=== PATIENT | male | born 1990 | race Caucasian/White ===

== ENCOUNTER 2017-08-09 18:30 | Emergency (ER) | payer MEDICAID, SELFPAY ==
[2017-08-09 18:31] VITALS: BP 148/79; PULSE 81; RESP 16; TEMP 36.2; O2SAT 97; BMI 38.7
--- NOTE | 2017-08-09 18:59 | CT_ITS ---
STUDY: CT SOFT TISSUE NECK WITH CONTRAST REASON FOR EXAM: Male, 27 years old. Sore throat. Prior tonsillectomy. RADIATION DOSAGE (If Supplied By Facility): CTDIvol = ( 22.75 ) mGy, DLP = ( 772.65 ) mGycm TECHNIQUE: The patient was scanned in a multi-detector CT scanner. High resolution transaxial imaging was performed following intravenous administration of 75ML ml of Isovue 300 contrast material. Sagittal and coronal images were reconstructed. Individualized dose optimization techniques were used for this CT. COMPARISON: None. FINDINGS: The lung apices are clear. There is no cervical lymphadenopathy. There is no fluid collection. The paranasal sinuses and mastoid air cells are clear. The visualized intracranial structures are within normal limits. CT/Soft Tissue Neck WITH Contrast IMPRESSION: Unremarkable contrast enhanced CT of the neck. Electronically Signed: Arnold Cueva, at 19:38 EST Tel , Service support ,
[2017-08-09 19:34] LABS: Absolute Neutrophil Count 7.4 X10^3/uL (2.0-7.7); Basophil# 0.02 X10^3/uL; Basophil% 0.2 % (0-1); Eosinophil# 0.18 X10^3/uL; Eosinophils% 1.7 % (0-5); Hematocrit 43.5 % (40-54); Hemoglobin 13.7 g/dl (13.0-16.5); Lymphocyte % 20.3 % (19-41); Mean Corp Hgb Conc 31.5 g/gl (32-36); Mean Corpuscular Volume 95.2 fL (80-94); Mean Platelet Vol. 9.2 fl (6.2-12.0); Monocyte# 0.99 X10^3/uL; Monocyte% 9.1 % (0-10); Neutrophil # 7.43 X10^3/uL (2.7-7.7); Neutrophil % 68.5 % (47-70); Platelet Count 180 K/mm3 (150-450); RBC Distribution Width CV 13.2 % (11.6-14.6); RBC Distribution Width SD 45.8 fl (35.1-43.9); Red Blood Count 4.57 M/mm3 (4.6-6.2); White Blood Count 10.8 K/mm3 (4.4-11.0)
[2017-08-09 19:46] LABS: Anion Gap 5 (5-15); BUN 14 mg/dL (7-18); BUN/Creat Ratio 16.1 RATIO (10-20); Calcium,Total 8.6 mg/dL (8.5-10.1); Chloride 107 mmol/L (98-107); Creatinine, Serum 0.87 mg/dL (0.70-1.30); EST Glomerular Filtration Rate 112 mL/min (>60); Est Glom Filt Rate - Afr Amer 136 mL/min (>60); Estimated Creatinine Clearance 166.34 ml/min; Glucose 90 mg/dL (70-110); Potassium 4.4 mmol/L (3.5-5.1); Sodium Level 142 mmol/L (136-145)
[2017-08-09 19:49] LABS: POSITIVE COUNT NO; POSITIVE DIFFERENTIAL NO; POSITIVE MORPHOLOGY NO
--- NOTE | 2017-08-09 19:59 | ED.VISSUMM ---
- ER Visit Summary Date of Service: 08/09/17 Chief Complaint: [Sore throat] History of Present Illness: The patient is a 27 M [presents to the emergency department with complaint of sore throat that started 3 days ago. Patient states that each day progressively has become more painful. Patient was seen in urgent care about 4 hours ago and they did a strep screen on him which was negative and the sent off a Tegretol level and told him it was not strep and send him home. Patient describes pain with swallowing. He denies any fevers. He denies any significant cough or body aches. Patient has had headache. Patient also describes vomiting for the last 4 months off and on anywhere from 1-5 times per day.] Physical Examination: HEENT-PERRLA, EOMI. Cranial nerves II through XII grossly intact. TMs clear. Mucous membranes moist. No adenopathy. She does have a small shallow ulceration to the soft palate left side. Uvula is in the midline without trismus. Cardiovascular-regular rate and rhythm without murmur or ectopy Lungs-clear to auscultation, chest wall stable without crepitus or subcu emphysema Abdomen-normoactive bowel sounds, soft, nontender, no rebound or rigidity, no peritoneal signs. Extremities-intact ?4, normal range of motion, normal pulses, atraumatic[] Test Results: [CBC with it was normal. Chemistries were normal. CT soft tissue neck was normal.] Emergency Department Course and Treatment: [Patient does not appear ill. I do not feel any further treatment is indicated at this time.] Treatment Plan: [Due to the painful swallowing issues patient advised to follow-up with primary care physician watermelon inspector for no doc and will also refer to GI on-call.] Disposition: [Discharged home in stable condition. Patient advised to return if inability to swallow, fever, increasing shortness of breath, or condition should worsen in any way. Impression: [Pharyngitis Odynophagia] This note was generated with [employer] dictation software. It may contain incorrect words, spelling, and punctuation that were not noted in review of the chart prior to signing ED Disposition - Plan for ED Patient: Chief Complaint: Sore Throat Referrals: Care Physician,No Primary [Primary Care Provider] -
--- NOTE | 2017-08-09 20:02 | ED.DCSUM_ITS ---
- ER Visit Summary Date of Service: 08/09/17 Chief Complaint: [Sore throat] History of Present Illness: The patient is a 27 M [presents to the emergency department with complaint of sore throat that started 3 days ago. Patient states that each day progressively has become more painful. Patient was seen in urgent care about 4 hours ago and they did a strep screen on him which was negative and the sent off a Tegretol level and told him it was not strep and send him home. Patient describes pain with swallowing. He denies any fevers. He denies any significant cough or body aches. Patient has had headache. Patient also describes vomiting for the last 4 months off and on anywhere from 1 -5 times per day.] Physical Examination: HEENT-PERRLA, EOMI. Cranial nerves II through XII grossly intact. TMs clear. Mucous membranes moist. No adenopathy. She does have a small shallow ulceration to the soft palate left side. Uvula is in the midline without trismus. Cardiovascular-regular rate and rhythm without murmur or ectopy Lungs-clear to auscultation, chest wall stable without crepitus or subcu emphysema Abdomen-normoactive bowel sounds, soft, nontender, no rebound or rigidity, no peritoneal signs. Extremities-intact ?4, normal range of motion, normal pulses, atraumatic[] Test Results: [CBC with it was normal. Chemistries were normal. CT soft tissue neck was normal.] Emergency Department Course and Treatment: [Patient does not appear ill. I do not feel any further treatment is indicated at this time.] Treatment Plan: [Due to the painful swallowing issues patient advised to follow- up with primary care physician talent acquisition assistant for no doc and will also refer to GI on- call.] Disposition: [Discharged home in stable condition. Patient advised to return if inability to swallow, fever, increasing shortness of breath, or condition should worsen in any way. Impression: [Pharyngitis Odynophagia] This note was generated with [employer] dictation software. It may contain incorrect words, spelling, and punctuation that were not noted in review of the chart prior to signing ED Disposition - Plan for ED Patient: Chief Complaint: Sore Throat Referrals: Care Physician,No Primary [Primary Care Provider] -
--- NOTE | 2017-08-09 20:02 | ED.DEP ---
ED Disposition - Plan for ED Patient: Chief Complaint: Sore Throat Instructions: ED Pharyngitis Viral Referrals: Care Physician,No Primary [Primary Care Provider] - Adam Blake MD [STAFF PHYSICIAN] - 3-5 Days Kevin Melendrez MD [STAFF PHYSICIAN] - 3-5 Days
[2017-08-09 20:07] VITALS: PULSE 82; RESP 16; O2SAT 98
== END 2017-08-09 20:07 | disposition home or self-care (01) ==
LOC: ED 19:03
PROVIDERS: Emergency Provider Emergency Medicine
DX: J02.9 Acute pharyngitis, unspecified (principal); R13.10 Dysphagia, unspecified; F41.9 Anxiety disorder, unspecified; F32.9 Major depressive disorder, single episode, unspecified; Z79.899 Other long term (current) drug therapy
CPT/HCPCS: 70491; 80048; 85025; 99283; Q9967; A4216

== ENCOUNTER 2017-09-04 08:27 | Emergency (ER) | payer MEDICAID, SELFPAY ==
[2017-09-04 08:28] VITALS: BP 158/103; PULSE 86; RESP 18; TEMP 36.4; BMI 41.2
--- NOTE | 2017-09-04 09:34 | ED.VISSUMM ---
- ER Visit Summary Date of Service: 09/04/17 Chief Complaint: Suicidal thoughts History of Present Illness: The patient is a 27 M who goes the counseling center. He reports these had suicidal thoughts my whole life. States that they have worsened over the past 2 months. He does not have a plan and would not act on any thoughts. States that he typically takes Tegretol at thousand milligrams nightly and Effexor 150 mg a day. He ran out of his Tegretol yesterday and was unable to take his dose last night. Physical Examination: Vitals: Stable. Afebrile. General: Well-nourished and well-developed. Head: Normocephalic atraumatic. Neck: Supple, no lymphadenopathy. No JVD. Nontender. Cardiovascular: Regular rate and rhythm. No murmurs. Respiratory: No respiratory distress. Clear to auscultation bilaterally. Abdominal: Soft, nontender, nondistended, normal bowel sounds. No guarding, rebound, or peritoneal signs. Back: Nontender. Extremities: Nontender, no edema. Skin: Normal color, no rash. Neurologic: Alert and oriented ?3. Cranial nerves II through XII are intact. Normal strength and sensation. Mental status exam: Patient appears their stated age. Good posture and grooming. Good eye contact. Normal rate, volume, and latency of speech. No suicidal or homicidal ideation. No auditory or visual hallucinations. Flow of thought is logical. Insight and judgment is fair. Test Results: Tegretol level is 5.5. Emergency Department Course and Treatment: The patient is resting comfortably and continues to deny plan. Treatment Plan: The patient was discussed with the counseling center. He has an appointment in 1 week at 1 PM. He was put on a cancellous to try to get an earlier appointment if available. He will be given a prescription for Tegretol. Return to the emergency department for any worsening symptoms. Disposition: To home in improved and stable condition. Impression: 1. Depression. This note was generated with [employer] dictation software. It may contain incorrect words, spelling, and punctuation that were not noted in review of the chart prior to signing ED Disposition - Plan for ED Patient: Chief Complaint: Mental Health Instructions: ED Depression Prescriptions: Carbamazepine [Tegretol] 1,000 mg PO QHS #150 tablet Referrals: Counseling,Center [GROUP OF PHYSICIANS] - 09/11/17 1:00 pm Additional Instructions: You were also put on a cancellation list for your counselor. You will be called if an earlier visit becomes available.
[2017-09-04 09:54] LABS: Carbamazepine (Tegretol) 5.5 ug/mL (4.0-12.0)
== END 2017-09-04 10:08 | disposition home or self-care (01) ==
PROVIDERS: Emergency Provider Emergency Medicine
DX: F32.9 Major depressive disorder, single episode, unspecified (principal); Z79.899 Other long term (current) drug therapy
CPT/HCPCS: 36415; 80156; 99283

== ENCOUNTER 2017-10-10 19:24 | Emergency (ER) | payer MEDICAID, SELFPAY ==
[2017-10-10 19:25] VITALS: BP 162/87; PULSE 94; RESP 18; TEMP 36.9; O2SAT 97; BMI 38.1
--- NOTE | 2017-10-10 19:39 | ED.VISSUMM ---
- ER Visit Summary Date of Service: 10/10/17 Chief Complaint: Prescription refill History of Present Illness: The patient is a 27 M who has a mood disorder. He is on Tegretol 1000 mg at night. States he takes 5 tablets at night. He moved from [place]. He has an appointment with new psychiatrist in a week. He has actually no other complaints. He denies history of hypertension. Physical Examination: Pressure is elevated at 162/87. Vital signs unremarkable. He is slightly anxious/nervous. HEENT is grossly unremarkable. Heart is regular. There is no respiratory distress. He is alert and oriented with a nonfocal neurologic exam. Test Results: None Emergency Department Course and Treatment: Refill prescription for Tegretol and referral to Dr. Radha Moraes since he does not have a physician in the area. Treatment Plan: Prescription refill and repeat blood pressure in 1-2 weeks Disposition: Discharge to home with appropriate follow-up with PCP and psychiatrist Impression: 1. Prescription refill 2. Hypertension in nonhypertensive patient, asymptomatic This note was generated with [employer] dictation software. It may contain incorrect words, spelling, and punctuation that were not noted in review of the chart prior to signing ED Disposition - Plan for ED Patient: Disposition: Home or Assisted Living Chief Complaint: Med Refill Instructions: Med Refill, ED Hypertension Poss Prescriptions: Carbamazepine [Tegretol] 1,000 mg PO QHS #150 tab Referrals: Care Physician,No Primary [Primary Care Provider] - Radha Moraes DO [NON-STAFF] - 1-2 Weeks Additional Instructions: You need to follow-up with Dr. moraes in 1-2 weeks to have your blood pressure re-checked since it was elevated today 162/87
--- NOTE | 2017-10-10 19:45 | ED.DCSUM_ITS ---
- ER Visit Summary Date of Service: 10/10/17 Chief Complaint: Prescription refill History of Present Illness: The patient is a 27 M who has a mood disorder. He is on Tegretol 1000 mg at night. States he takes 5 tablets at night. He moved from [place]. He has an appointment with new psychiatrist in a week. He has actually no other complaints. He denies history of hypertension. Physical Examination: Pressure is elevated at 162/87. Vital signs unremarkable. He is slightly anxious/nervous. HEENT is grossly unremarkable. Heart is regular. There is no respiratory distress. He is alert and oriented with a nonfocal neurologic exam. Test Results: None Emergency Department Course and Treatment: Refill prescription for Tegretol and referral to Dr. Radha Moraes since he does not have a physician in the area. Treatment Plan: Prescription refill and repeat blood pressure in 1-2 weeks Disposition: Discharge to home with appropriate follow-up with PCP and psychiatrist Impression: 1. Prescription refill 2. Hypertension in nonhypertensive patient, asymptomatic This note was generated with [employer] dictation software. It may contain incorrect words, spelling, and punctuation that were not noted in review of the chart prior to signing ED Disposition - Plan for ED Patient: Disposition: Home or Assisted Living Chief Complaint: Med Refill Instructions: Med Refill, ED Hypertension Poss Prescriptions: Carbamazepine [Tegretol] 1,000 mg PO QHS #150 tab Referrals: Care Physician,No Primary [Primary Care Provider] - Radha Moraes DO [NON-STAFF] - 1-2 Weeks Additional Instructions: You need to follow-up with Dr. moraes in 1-2 weeks to have your blood pressure re- checked since it was elevated today 162/87
[2017-10-10 20:00] VITALS: BP 161/87; PULSE 79; RESP 16; O2SAT 97
--- NOTE | 2017-10-17 11:55 | CASEMGMT ---
Social Work Note Upon review of chart it appears that the pt moved to [place] in the past few months and needs reestablished with a psychiatrist. Pt has come in to the ED 3x for reasons that revolve around medication refills. He follows with a counselor at the counseling center, but has not yet seen a psychiatrist. Placed call to the pt and left requesting a return phone call to confirm that the pt has a f/u appointment with psychiatry and has transportation. Placed call to the [facility] and confirmed that the pt has an appointment with a psychiatrist on 10/17 at 1500. Daylin Rodriguez, COLLEGE RECRUITER, SUPERVISOR CIGAR PROCESSING
--- NOTE | 2017-10-17 12:05 | CASEMGMT ---
Social Work Note Placed call to pt to confirm that he has transportation to his follow-up appointment this date. Left and requested a return phone call. Daylin Rodriguez, BOAT LOADER, EXHAUSTER ENGINEER
== END 2017-10-10 20:01 | disposition home or self-care (01) ==
LOC: ED 19:50
PROVIDERS: Emergency Provider Emergency Medicine
DX: F32.9 Major depressive disorder, single episode, unspecified (principal); R03.0 Elevated blood-pressure reading, without diagnosis of hypertension; Z76.0 Encounter for issue of repeat prescription; E66.9 Obesity, unspecified; Z79.899 Other long term (current) drug therapy
CPT/HCPCS: 99282

== ENCOUNTER 2017-12-23 22:39 | Emergency (ER) | payer MEDICAID, SELFPAY ==
[2017-12-23 22:39] VITALS: BP 132/99; PULSE 85; RESP 16; TEMP 36.7; O2SAT 97; BMI 41.1
--- NOTE | 2017-12-23 23:28 | ED.DCSUM_ITS ---
- ER Visit Summary Date of Service: 12/23/17 Chief Complaint: Medication side effects History of Present Illness: The patient is a 27 M presenting for evaluation secondary to potential medication side effect. Patient reports that he recently was started on propranolol for treatment of his anxiety. Patient reports that since he started taking it he has been feeling woozy tired, having headaches, and having sneezing fits. Patient reports that he has felt somewhat confused at work and as he works at [employer] stated that he accidentally threw away an entire tray of [employer]. He denies any unilateral numbness or weakness. Denies any fevers or head injury. Denies any visual changes. Review of systems otherwise negative. Physical Examination: Vital signs are within normal limits, patient is afebrile. General: Patient is well-nourished well-developed and in no acute distress. Head: Normocephalic, atraumatic Eyes: Pupils equal round and reactive bilaterally, extra occular motion intact bialterally ENT: Moist mucous membranes Neck: Supple, no lymphadenopathy, no JVD, no meningismus CVS: Heart regular rate and rhythm, no murmurs, rubs or gallops, radial pulses 2 + bilaterally Resp: Respirations nondistressed, lung sounds clear bilaterally Abdomen: Soft, nontender, nondistended, no palpable masses, normal bowel sounds Back: Nontender Extremities: Nontender, atraumatic, active full range of motion, no peripheral edema Skin: warm, no rashes, no petechia Neuro: Alert and oriented x 4, CN 2-12 intact, no lateralizing neurological defecits Psyc: Normal affect Emergency Department Course and Treatment: None indicated Treatment Plan: Patient presented secondary to what likely are medication side effects. He has normal physical exam, I do not believe that there is any indication for workup. Patient was recommended to decrease his propranolol dose by half, and follow-up with his primary care physician. Disposition: Discharge Impression: 1. Medication side effect This note was generated with [employer] dictation software. It may contain incorrect words, spelling, and punctuation that were not noted in review of the chart prior to signing ED Disposition - Plan for ED Patient: Chief Complaint: Allergic Reaction Instructions: ED Drug React Adverse Other Referrals: Care Physician,No Primary [Primary Care Provider] -
[2017-12-23 23:39] VITALS: BP 132/99; PULSE 85; RESP 16; O2SAT 97
== END 2017-12-23 23:39 | disposition home or self-care (01) ==
LOC: ED 23:10
PROVIDERS: Emergency Provider Emergency Medicine
DX: G44.40 Drug-induced headache, not elsewhere classified, not intractable (principal); R53.83 Other fatigue; R41.0 Disorientation, unspecified; T44.7X5A Adverse effect of beta-adrenoreceptor antagonists, initial encounter; E66.9 Obesity, unspecified; F41.9 Anxiety disorder, unspecified; F32.9 Major depressive disorder, single episode, unspecified; Z79.899 Other long term (current) drug therapy; Y92.89 Other specified places as the place of occurrence of the external cause
CPT/HCPCS: 99282

== ENCOUNTER 2018-01-27 23:00 | Emergency (ER) | payer MEDICAID, SELFPAY ==
[2018-01-27 23:01] VITALS: BP 164/87; PULSE 84; RESP 16; TEMP 36.3; O2SAT 97; BMI 38.1
--- NOTE | 2018-01-27 23:14 | ED.VISSUMM ---
- ER Visit Summary Date of Service: 01/27/18 Chief Complaint: Left leg pain History of Present Illness: The patient is a 27 M who presents with left leg pain. He has a history of sciatica. He complains of about 4 months of pain along his left lateral thigh and down behind his knee. He describes this as aching and burning. It is worse when he is been sitting. He denies any paresthesias weakness loss of function. He also complains of lower back pain. No urinary retention fecal incontinence numbness or tingling. No weakness. No fall injury or trauma. No abdominal pain. Physical Examination: Afebrile vitals are notable for blood pressure 164/87 otherwise normal Heart regular rate and rhythm No respiratory distress Abdomen soft Negative straight leg raise 5 out of 5 dorsiflexion, plantarflexion, extensor hallucis longus Easily palpable 2+ dorsalis pedis pulse with brisk capillary refill normal sensation to light touch no soft tissue swelling no reproducible tenderness Test Results: Not indicated Emergency Department Course and Treatment: I do believe the patient's presentation is consistent with a lumbar radiculopathy. We will try a course of prednisone. He was also given a referral for primary care physician. He was advised that if symptoms continue he may benefit from physical therapy. Treatment Plan: [] Disposition: Discharge Impression: Lumbar radiculopathy This note was generated with [employer] dictation software. It may contain incorrect words, spelling, and punctuation that were not noted in review of the chart prior to signing ED Disposition - Plan for ED Patient: Chief Complaint: Lower Extremity Injury Referrals: Care Physician,No Primary [Primary Care Provider] -
--- NOTE | 2018-01-27 23:16 | ED.DEP ---
ED Disposition - Plan for ED Patient: Chief Complaint: Lower Extremity Injury Instructions: ED Sciatica Prescriptions: Prednisone [Deltasone] 60 mg PO DAILY #15 tab Referrals: Care Physician,No Primary [Primary Care Provider] - Ky Arguello MD [STAFF PHYSICIAN] -
== END 2018-01-27 23:23 | disposition home or self-care (01) ==
LOC: ED 23:20
PROVIDERS: Emergency Provider Emergency Medicine
DX: M54.16 Radiculopathy, lumbar region (principal); F32.9 Major depressive disorder, single episode, unspecified; Z72.0 Tobacco use; Z79.899 Other long term (current) drug therapy
CPT/HCPCS: 99282

== ENCOUNTER 2018-02-10 21:46 | Emergency (ER) | payer MEDICAID, SELFPAY ==
[2018-02-10 21:46] VITALS: BP 137/87; PULSE 84; RESP 16; TEMP 36.3; O2SAT 98; BMI 38.1
--- NOTE | 2018-02-10 22:02 | ED.DCSUM_ITS ---
- ER Visit Summary Date of Service: 02/10/18 Chief Complaint: Back pain History of Present Illness: The patient is a 27 M with a history of chronic back pain with sciatica. He has had increasing pain over the past week. Patient was seen for the same on January 27. He was given a prednisone burst and patient states symptoms did improve while he had the medication. He is in the process of trying to establish a primary care physician. He had been taking ibuprofen but has been out of this for last several days as well. There is been no new injury to his back. Physical Examination: Vital signs unremarkable. Patient sitting upright in bed no acute distress. Heart is regular rate and rhythm. Lung sounds are clear. Abdomen is soft, obese, nontender. Back examination reveals mild tenderness in the left low lumbar paraspinals. Lower external examination reveals good strength and sensation on testing throughout. He has strong distal pulses. Test Results: [] Emergency Department Course and Treatment: Patient be treated with naproxen and a prednisone taper, first doses given here. He is given a pamphlet physician directory so he can establish primary care physician. Treatment Plan: [] Disposition: Discharge Impression: Sciatica This note was generated with [employer] dictation software. It may contain incorrect words, spelling, and punctuation that were not noted in review of the chart prior to signing ED Disposition - Plan for ED Patient: Chief Complaint: Back Referrals: Care Physician,No Primary [Primary Care Provider] -
--- NOTE | 2018-02-10 22:02 | ED.DEP ---
ED Disposition - Plan for ED Patient: Disposition: Home or Assisted Living Chief Complaint: Back Instructions: ED Sciatica Prescriptions: Naproxen [Naprosyn] 500 mg PO BID PRN PRN #20 tablet PRN Reason: Pain Prednisone 10 mg PO DAILY #63 tablet Additional Instructions: Physician directory provided with list of doctors in the area so you can establish a primary care physician.
[2018-02-10] MEDS: Naproxen 500 MG Tablet PO (22:07)
[2018-02-10] MEDS: predniSONE 20 MG Tablet 60 MG PO (22:07)
[2018-02-10 22:09] VITALS: BP 132/75; PULSE 89; RESP 16; O2SAT 98
== END 2018-02-10 22:11 | disposition home or self-care (01) ==
LOC: ED 22:05
PROVIDERS: Emergency Provider Emergency Medicine
DX: M54.42 Lumbago with sciatica, left side (principal); Z72.0 Tobacco use; Z79.899 Other long term (current) drug therapy
CPT/HCPCS: 99283

== ENCOUNTER 2018-05-22 05:58 | Emergency (ER) | payer MEDICAID, SELFPAY ==
[2018-05-22 05:59] VITALS: BP 137/103; PULSE 99; RESP 16; TEMP 36.6; O2SAT 95; BMI 43.8
[2018-05-22 06:02] VITALS: RESP 16
--- NOTE | 2018-05-22 06:26 | VDLE_ITS ---
Reason For Study: pain RIGHT LEFT GSV is normal. CFV is compressible, spontaneous, phasic, CFV is compressible, spontaneous, phasic, competent, and demonstrates normal competent and demonstrates normal augmentation. augmentation. FV is compressible, spontaneous, phasic, competent and demonstrates normal augmentation. POP V is compressible, spontaneous, phasic, competent and demonstrates normal augmentation. T/P Trunk is compressible. PTV is compressible. RT PerV is compressible. Procedure Exam performed portable in ED. The exam was diagnostic. A preliminary report was called and/or faxed to Dr. Black. <> Interpretation Summary Deep veins of the right lower extremity are patent and compressible segmentally. There is no evidence of right lower extremity deep vein thrombosis. Valvular competence appears intact within the proximal deep venous system on the right . The right greater saphenous vein appears patent and compressible segmentally. Ordering Physician: Darin Banks Performed By: Javier Guzmán RVT
--- NOTE | 2018-05-22 06:27 | ED.VISSUMM ---
- ER Visit Summary Date of Service: 05/22/18 Chief Complaint: Right thigh pain History of Present Illness: The patient is a 28 M who presents with right thigh pain. This is been present for about 1 week. Describes it as sharp or stabbing. It is only with movement. While at rest he has minimal if any pain. However it is severe with certain movements. He describes it as a muscle pain. He has no back pain. He has a history of sciatica but states this feels different and that it does not feel like nerve pain. He denies any recent travel or immobilization history of DVT or pulmonary embolism. He is otherwise generally medically healthy. Physical Examination: Blood pressure 137/103 vitals otherwise normal BMI 44 No apparent distress Heart regular rate and rhythm Lungs clear Patient has posterior right thigh tenderness no rash he has pain with flexion of the hip he has no pain with logroll he has no focal tenderness of the hip or knee. No edema. Easily palpable dorsalis pedis pulse with brisk capillary refill normal sensation Test Results: Venous duplex pending at the time of this dictation. Emergency Department Course and Treatment: I suspect this is musculoskeletal in nature related to hamstring strain. He does note that he has been working more recently. However DVT is also on my differential. We will obtain a venous duplex this morning to rule this out. Plan at the time of this dictation is to sign out this patient to the oncoming physician for follow-up on the venous duplex as they are not here yet at this time. This is normal patient can be discharged. I did give naproxen here and will write a prescription for the same. Treatment Plan: [] Disposition: Pending venous duplex Impression: Right thigh pain This note was generated with [employer] dictation software. It may contain incorrect words, spelling, and punctuation that were not noted in review of the chart prior to signing ED Disposition - Plan for ED Patient: Chief Complaint: Lower Extremity Injury Referrals: Care Physician,No Primary [Primary Care Provider] -
--- NOTE | 2018-05-22 06:30 | ED.DEP ---
ED Disposition - Plan for ED Patient: Chief Complaint: Lower Extremity Injury Instructions: ED Strain Muscle Ext Prescriptions: Naproxen [Naprosyn] 500 mg PO BID #20 tab Referrals: Care Physician,No Primary [Primary Care Provider] -
[2018-05-22] MEDS: Naproxen 500 MG Tablet PO (06:31)
--- NOTE | 2018-05-22 08:12 | NURSING ---
0800 [facility], VASCULAR LAB , IN ROOM
[2018-05-22 08:23] VITALS: BP 116/74; PULSE 61; RESP 15; O2SAT 97
== END 2018-05-22 08:23 | disposition home or self-care (01) ==
LOC: ED 06:18
PROVIDERS: Emergency Provider Emergency Medicine
DX: M79.651 Pain in right thigh (principal); Z72.0 Tobacco use; Z79.899 Other long term (current) drug therapy
CPT/HCPCS: 93971; 99282

== ENCOUNTER 2018-06-16 15:40 | Emergency (ER) | payer SELFPAY ==
[2018-06-16 15:40] VITALS: BMI 38.7
[2018-06-16 15:41] VITALS: BP 164/82; PULSE 85; RESP 16; TEMP 36.3; O2SAT 99; BMI 38.1
--- NOTE | 2018-06-16 15:52 | ED.VISSUMM ---
- ER Visit Summary Date of Service: 06/16/18 Chief Complaint: Right calf pain and leg pain History of Present Illness: The patient is a 28 M presents to the emergency department with 1 month of right calf and leg pain. Patient was seen here a month ago for the same. He states that the longer he would stand on his leg, he would get burning pain in the back of the leg into his calf. He presented here. At that time, he had an ultrasound which was negative. He states that he has changed jobs. He was actually off work for 2 weeks but he does like the pain has not improved. He denies any chest pain or trouble breathing. He does have a history of sciatica, but states normally, it is on his left side. He has had no problems with bowel or bladder. He denies any fevers or chills. Physical Examination: Afebrile, vitals unremarkable. Well-appearing male no acute distress. Head is normocephalic, atraumatic. Pupil's equal round reactive, extraocular muscles intact. Neck supple. Heart regular rate and rhythm. Lungs clear, chest nontender. Abdomen soft, nontender, nondistended. No pulsatile mass. Patient has paraspinal tenderness in the lumbar area, but no bony tenderness. Straight leg raise is re-creates the pain and burning in his right leg. 2+ symmetric lower extremity pulses. 2+ reflexes. No clonus. No weakness of dorsiflexion, plantar flexion, or extensor hallucis longus bilaterally.] Test Results: [] Emergency Department Course and Treatment: [The patient's symptoms do seem most consistent with a radiculopathy. His straight leg raise re-creates the pain down his leg. His pulses are normal. His ultrasound was normal. He has no edema. His compartments are soft. My suspicion is that this is likely coming from the lumbar spine. I am going to treat the patient with a steroid burst as he has had improvement with this in the past. He will be given anti-inflammatories and antispasmodics. He will be discharged home. Treatment Plan: [] Disposition: Discharge Impression: 1. Radiculopathy of the right lower extremity This note was generated with Live Life 360ation software. It may contain incorrect words, spelling, and punctuation that were not noted in review of the chart prior to signing ED Disposition - Plan for ED Patient: Chief Complaint: Lower Extremity Injury Instructions: ED Sciatica Prescriptions: Naproxen [Naprosyn] 500 mg PO BID PRN #20 tab predniSONE tablet 60 mg PO DAILY #15 tab Cyclobenzaprine [Flexeril] 10 mg PO TID PRN #20 tab PRN Reason: Muscle Spasm Referrals: Care Physician,No Primary [Primary Care Provider] -
--- NOTE | 2018-06-16 15:55 | ED.DCSUM_ITS ---
- ER Visit Summary Date of Service: 06/16/18 Chief Complaint: Right calf pain and leg pain History of Present Illness: The patient is a 28 M presents to the emergency department with 1 month of right calf and leg pain. Patient was seen here a month ago for the same. He states that the longer he would stand on his leg, he would get burning pain in the back of the leg into his calf. He presented here. At that time, he had an ultrasound which was negative. He states that he has changed jobs. He was actually off work for 2 weeks but he does like the pain has not improved. He denies any chest pain or trouble breathing. He does have a history of sciatica, but states normally, it is on his left side. He has had no problems with bowel or bladder. He denies any fevers or chills. Physical Examination: Afebrile, vitals unremarkable. Well-appearing male no acute distress. Head is normocephalic, atraumatic. Pupil's equal round reactive, extraocular muscles intact. Neck supple. Heart regular rate and rhythm. Lungs clear, chest nontender. Abdomen soft, nontender, nondistended. No pulsatile mass. Patient has paraspinal tenderness in the lumbar area, but no bony tenderness. Straight leg raise is re-creates the pain and burning in his right leg. 2+ symmetric lower extremity pulses. 2+ reflexes. No clonus. No weakness of dorsiflexion, plantar flexion, or extensor hallucis longus bilaterally.] Test Results: [] Emergency Department Course and Treatment: [The patient's symptoms do seem most consistent with a radiculopathy. His straight leg raise re-creates the pain down his leg. His pulses are normal. His ultrasound was normal. He has no edema. His compartments are soft. My suspicion is that this is likely coming from the lumbar spine. I am going to treat the patient with a steroid burst as he has had improvement with this in the past. He will be given anti- inflammatories and antispasmodics. He will be discharged home. Treatment Plan: [] Disposition: Discharge Impression: 1. Radiculopathy of the right lower extremity This note was generated with [employer] software. It may contain incorrect words, spelling, and punctuation that were not noted in review of the chart prior to signing ED Disposition - Plan for ED Patient: Chief Complaint: Lower Extremity Injury Instructions: ED Sciatica Prescriptions: Naproxen [Naprosyn] 500 mg PO BID PRN #20 tab predniSONE tablet 60 mg PO DAILY #15 tab Cyclobenzaprine [Flexeril] 10 mg PO TID PRN #20 tab PRN Reason: Muscle Spasm Referrals: Care Physician,No Primary [Primary Care Provider] -
== END 2018-06-16 16:19 | disposition home or self-care (01) ==
LOC: ED 16:07
PROVIDERS: Emergency Provider Emergency Medicine
DX: M54.16 Radiculopathy, lumbar region (principal); Z79.899 Other long term (current) drug therapy
CPT/HCPCS: 99282

== ENCOUNTER 2018-07-17 15:16 | Emergency (ER) | payer OTHER, MEDICAID, SELFPAY ==
[2018-07-17 15:17] VITALS: BP 151/100; PULSE 92; RESP 18; TEMP 36.6; O2SAT 97; BMI 19.0
--- NOTE | 2018-07-17 15:51 | ED.DCSUM_ITS ---
- ER Visit Summary Date of Service: 07/17/18 Chief Complaint: Right leg pain History of Present Illness: The patient is a 28 M who presents with right leg pain that has been gradually getting worse over the past couple months. Patient was seen here for this in the past and had a negative venous duplex. Patient states he was also put on steroids at one time which seemed to help with his pain. Patient admits to some paresthesias over the lateral aspect of the right leg. Patient states his pain is worse with ambulation and with standing. Patient describes the pain as aching, burning, and throbbing. Patient denies any trauma or injury. Physical Examination: Vital signs are stable. Patient is afebrile. Patient is in no acute distress. Heart was regular rate and rhythm. Lungs are clear and equal bilaterally. Abdomen is soft. Bowel sounds are normal. There is no tenderness. Musculoskeletal exam reveals tenderness over the right lumbar paraspinal muscles and over the sciatic notch. Range of motion was slightly limited in all motions of the lumbar spine secondary to pain. Range of motion of the right lower extremity was not limited. Strength is 5/5 bilaterally in the lower extremities. Deep tendon reflexes were 2+/4 bilaterally in the patella and Achilles reflexes. Sensation was diminished to light touch in the lateral aspect of the right leg but was otherwise intact to light touch. The remaining physical exam is within normal limits. Emergency Department Course and Treatment: I discussed with the patient that this is most likely a lumbar radiculopathy or sciatica. We will prescribe another burst of steroids for the patient since this has helped in the past. Patient was encouraged to follow-up with a primary care physician for further evaluation of his back. Patient understood and was agreeable with the plan. All questions were answered. Disposition: Discharged home Impression: Lumbar radiculopathy This note was generated with Protagen dictation software. It may contain incorrect words, spelling, and punctuation that were not noted in review of the chart prior to signing ED Disposition - Plan for ED Patient: Chief Complaint: Lower Extremity Injury Diagnosis: Lumbar radiculopathy, right Instructions: ED Sciatica Prescriptions: predniSONE tablet 60 mg PO DAILY #15 tab Referrals: Care Physician,No Primary [Primary Care Provider] - Jose Beasley MD [NON-STAFF] -
== END 2018-07-17 15:57 | disposition home or self-care (01) ==
LOC: ED 15:54
PROVIDERS: Emergency Provider Emergency Medicine
DX: M54.16 Radiculopathy, lumbar region (principal); E66.9 Obesity, unspecified; I10 Essential (primary) hypertension; E78.00 Pure hypercholesterolemia, unspecified; F32.9 Major depressive disorder, single episode, unspecified; F41.9 Anxiety disorder, unspecified; Z72.0 Tobacco use; Z79.899 Other long term (current) drug therapy
CPT/HCPCS: 99282

== ENCOUNTER 2018-08-02 13:36 | Emergency (ER) | payer OTHER, MEDICAID, SELFPAY ==
[2018-08-02 13:37] VITALS: BP 163/111; PULSE 115; RESP 16; TEMP 36.7; O2SAT 97; BMI 39.2
--- NOTE | 2018-08-02 13:56 | RAD_ITS ---
STUDY: X-RAY - PELVIS AND RIGHT HIP REASON FOR EXAM: Right leg and low back pain for 3 days, no specific injury. TECHNIQUE: 2 views of the pelvis and hip. COMPARISON: None. FINDINGS: There are pelvic phleboliths. Normal bilateral iliac wings, sacroiliac joints and visualized sacrum. Normal bilateral superior and inferior pubic rami. Normal pubic symphysis. Normal bilateral ischial tuberosities. Normal visualized femoral head. Normal acetabulum. Normal hip joint. RAD/HIP, UNI W/ Pelvis 2-3 Views IMPRESSION: Normal x-ray examination of the pelvis and right hip. Electronically Signed: Sean Olivera MD at 15:03 EST Tel , Service support ,
--- NOTE | 2018-08-02 13:56 | RAD_ITS ---
STUDY: X-RAY - LUMBAR SPINE REASON FOR EXAM: Male, 28 years old. 3 day history of back pain. No known injury. TECHNIQUE: 3 view(s) of the lumbar spine were obtained. COMPARISON: None FINDINGS: There is straightening of the normal lumbar lordosis. There is no substantial scoliosis. There is a normal alignment of the vertebrae. Normal vertebral bodies and endplates. Mild degree of disc space narrowing at the L4-L5 and L5-S1 levels. The soft tissue structures are unremarkable. RAD/Lumbar Spine 2 or 3 Views IMPRESSION: Loss of the normal lumbar lordosis. Disc space narrowing at the L4-L5 and L5-S1 levels. Electronically Signed: Amrit Barrett MD at 14:58 EST , Service support ,
--- NOTE | 2018-08-02 13:57 | MRI_ITS ---
STUDY: MRI LUMBAR SPINE WITHOUT CONTRAST REASON FOR EXAM: Male, 28 years old. leg weakness, rt leg pain TECHNIQUE: Standardized fat and water weighted pulse sequences were obtained in the sagittal and axial planes. COMPARISON: None FINDINGS: T12-L1: Normal endplates. Normal disc height, hydration and morphology. Normal bilateral facet joints. Normal central canal and bilateral lateral recesses. Normal bilateral intervertebral neural foramina. There is straightening of the normal lumbar lordosis. There is no substantial scoliosis. Normal conus medullaris that terminates at the L1 L1-2: Normal endplates. Normal disc height, hydration and morphology. Normal bilateral facet joints. Normal central canal and bilateral lateral recesses. Normal bilateral intervertebral neural foramina. There are small vertebral hemangiomas at L1 and L2 L2-3: There is mild disc space narrowing and endplates spondylosis. There is a mild disc bulge small central protrusion with mild central canal stenosis. There is no significant foraminal stenosis. L3-4: There is mild disc space narrowing and endplates spondylosis. There is a mild disc bulge with left central protrusion with moderate central canal and moderate lateral recess narrowing. There is no significant foraminal stenosis. L4-5: There is moderate disc space narrowing and endplates spondylosis. There is a mild disc bulge with right central extrusion (1.7 x 0.8 x 1.5 cm) with severe right lateral recess and moderate central canal stenosis. There is mild right foraminal stenosis. There is no significant left foraminal stenosis. L5-S1: There is moderate disc space narrowing and endplates spondylosis. There is a disc bulge with central extrusion (1.5 x 1.2 x 2.5 cm) with severe central canal stenosis. There is mild bilateral foraminal cyst. Normal visualized sacral ala. Normal visualized paraspinous soft tissue structures. MRI/Spine Lumbar (Routine) IMPRESSION: L3/L4: Disc extrusion with moderate central canal stenosis. L4/L5: Disc extrusion with severe right lateral recess and moderate central canal stenosis. L5/S1: Large disc extrusion with severe central canal stenosis. Electronically Signed: Orlando Sanchez MD at 15:41 EST Tel , Service support ,
[2018-08-02] MEDS: Ondansetron ODT 4 MG Tablet PO (14:07)
[2018-08-02] MEDS: morphine 8 MG/ML Syringe IM (14:07)
--- NOTE | 2018-08-02 14:39 | ED.VISSUMM ---
- ER Visit Summary Date of Service: 08/02/18 Chief Complaint: [] Recurrent right posterior hip leg pain History of Present Illness: The patient is a 28 M [] having this type of pain for months it basically begins in the right posterior hip and shakes shoots down the right posterior thigh to the lateral thigh level, he has been evaluated in the emergency part multiple times indicates these had ultrasounds and other studies that are unremarkable, he has been instructed follow-up with outpatient providers but is been unable to do that because he has no insurance, indicates recently he obtained insurance and presents for evaluation of this acute recurrent process. Nothing makes it better or worse he is able to have normal bowel bladder habits, he has had no trauma to his body no fever no cough he denies any past history Physical Examination: [] 163/100 He is a very large gentleman in stature and girth, he weighs 155 kg General, no distress resting comfortably HEENT is generally unremarkable The neck is supple no adenopathy Cardiovascular, regular rate and rhythm Lungs, clear bilateral Abdomen, soft nontender Extremities, no clubbing cyanosis or edema, he complains of a pain that begins in the right posterior superior iliac crest region comes down the buttock and then really mostly into the right posterior thigh and lateral thigh he has full range of motion at the hip knee ankle and foot he has no motor deficits he is able to stand and walk when he walks he feels a tugging or pulling sensation to the posterior thigh he has midline back and buttocks are unremarkable there is no signs of infection trauma contusion or bruising no neurologic abnormalities no obvious signs of cauda equina Neurologic, awake alert answering questions appropriately moving all 4 extremities Test Results: [] Emergency Department Course and Treatment: [] Had the symptoms for months he has not followed up with outpatient providers at this time given his complaints given his size etc. the differentials rather extensive we will obtain plain films of lumbar spine right hip and MRI of the lumbar back to evaluate for possible acute lumbar disc process or other conditions, he is medicated with morphine IM Treatment Plan: [] Disposition: [] Impression: [] This note was generated with BoxCast[employer] software. It may contain incorrect words, spelling, and punctuation that were not noted in review of the chart prior to signing ED Disposition - Plan for ED Patient: Chief Complaint: Lower Extremity Injury Referrals: Care Physician,No Primary [Primary Care Provider] -
[2018-08-02 16:37] VITALS: BP 144/99; PULSE 96; RESP 17; O2SAT 97
--- NOTE | 2018-08-02 16:54 | ED.DEP ---
ED Disposition - Plan for ED Patient: Chief Complaint: Lower Extremity Injury Instructions: ED Sciatica Prescriptions: Hydrocodone Bitart/Apap 5-325 [[place] 5MG-325MG] 1 tab PO Q4H PRN PRN 2 Days #10 tab PRN Reason: Pain Naproxen [Naprosyn] 500 mg PO BID PRN #20 tab Referrals: Care Physician,No Primary [Primary Care Provider] - Additional Instructions: Please follow-up with [facility] neurosurgery as soon as possible, or if symptoms intensify please seek care at a facility that has spine surgeons available such as [facility], [facility] or [facility], return for weakness or bowel or bladder complaints
--- NOTE | 2018-08-02 16:57 | DCINST.ED_ITS ---
ED Disposition - Plan for ED Patient: Chief Complaint: Lower Extremity Injury Instructions: ED Sciatica Prescriptions: Hydrocodone Bitart/Apap 5-325 [[place] 5MG-325MG] 1 tab PO Q4H PRN PRN 2 Days #10 tab PRN Reason: Pain Naproxen [Naprosyn] 500 mg PO BID PRN #20 tab Referrals: Care Physician,No Primary [Primary Care Provider] - Additional Instructions: Please follow-up with [facility] neurosurgery as soon as possible, or if symptoms intensify please seek care at a facility that has spine surgeons available such as [facility], [facility] or [facility], return for weakness or bowel or bladder complaints
--- NOTE | 2018-08-02 18:37 | NURSING ---
CALLED GENERAL AND WAS TOLD SHOULD ONLY BE ANOTHER 30-45 MINUTES FOR A BED
--- NOTE | 2018-08-02 19:15 | NURSING ---
[facility] [id number] REPORT
[2018-08-02] MEDS: Morphine 4 MG/ML Syringe IV (19:57)
[2018-08-02 20:08] VITALS: BP 145/83; PULSE 86; RESP 16; O2SAT 94
[2018-08-02 20:10] VITALS: RESP 16
== END 2018-08-02 20:22 | disposition short-term general hospital (02) ==
LOC: ED 14:03
PROVIDERS: Emergency Provider Emergency Medicine
DX: M51.16 Intervertebral disc disorders with radiculopathy, lumbar region (principal); M54.5 Low back pain; M79.651 Pain in right thigh; Z79.899 Other long term (current) drug therapy
CPT/HCPCS: 72100; 72148; 73502; 96372; 96374; 99283; A4216